=== PATIENT | male | born 1950 | race Caucasian/White ===

== ENCOUNTER 2021-05-31 07:14 | Observation (INO) | payer OTHER ==
[2021-05-29 09:24] LABS: BASOPHILS % (AUTO) 0.9 % (0.0-5.0); EOSINOPHILS % (AUTO) 0.4 % (0.0-8.0); HEMATOCRIT 46.8 % (42-54); LYMPHOCYTES % (AUTO) 20.5 % (21.0-51.0); MEAN CORPUSCULAR HEMOGLOBIN 29.7 pg (27.0-33.0); MEAN CORPUSCULAR HGB CONC 32.7 g/dL (32.0-36.0); MEAN CORPUSCULAR VOLUME 90.7 fL (79-99); MONOCYTES % (AUTO) 8.7 % (3.0-13.0); NEUTROPHILS % (AUTO) 68.7 % (40.0-77.0); PLATELET COUNT (AUTO) 227 K/uL (130-400); RED BLOOD CELL COUNT(AUTO) 5.16 MIL/uL (4.50-6.20); RED CELL DISTRIBUTION WIDTH 13.2 % (11.0-15.5); WHITE BLOOD COUNT (AUTO) 7.9 K/uL (4.8-10.8)
[2021-05-29 09:26] LABS: APPEARANCE,URINE Clear (CLEAR); BILIRUBIN,URINE Negative (NEGATIVE); COLOR,URINE Yellow (YELLOW); GLUCOSE, URINE (UA) Negative (NEGATIVE); KETONES,URINE Negative (NEGATIVE); LEUKOCYTE ESTERASE ,URINE Negative (NEGATIVE); NITRATE,URINE Negative (NEGATIVE); OCCULT BLOOD,URINE Negative (NEGATIVE); PROTEIN,URINE Negative (NEGATIVE)
[2021-05-29 09:36] LABS: CREATININE 1.3 mg/dL (0.5-1.5); POTASSIUM 4.4 mmol/L (3.5-5.1)
[2021-05-29 09:39] LABS: INR 1.16 (0.85-1.15); PROTHROMBIN TIME 12.5 SEC (9.6-11.6)
[2021-05-30 15:21] VITALS: BP 144/76
[~2021-05-31] VITALS: Ht 165.1 cm; Wt 76.1 kg
[2021-05-31] VITALS (16 sets, daily range): BP systolic 85–132; BP diastolic 43–71
[~2021-05-31 07:14] MED LIST: ATOR20TA65 PO; FENO54TA6 PO; IRBE1TAB41 PO; METO50TA18 PO; VIT PO; [UNRECOGNIZED DRUG - OTHER] PO; [UNRECOGNIZED DRUG - OTHER] PO
[2021-05-31] MEDS ORDERED: LACTATED RINGERS 1000ML 1,000 ML IV ONE (08:00)
[2021-05-31] MEDS: CEFAZOLIN SODIUM 1 GM VIAL IVP ONE ×2 (08:21→13:28)
[2021-05-31] MEDS ORDERED: UBID10CA6 PO (08:28)
[2021-05-31] MEDS ORDERED: CEFAZOLIN SODIUM 1 GM VIAL ONE (11:51)
[2021-05-31] MEDS ORDERED: TRANEXAMIC ACID 1000MG/10ML ONE (11:51)
[2021-05-31] MEDS ORDERED: PROPOFOL 10 MG/ML 20ML VIAL IV ONE (12:54)
[2021-05-31] MEDS ORDERED: LIDOCAINE HCL-MPF 1% 5ML AMP IJ ONE (12:54)
[2021-05-31] MEDS ORDERED: ROCURONIUM 10MG/1ML SYR 10 MG/ML ML ONE (12:54)
[2021-05-31] MEDS ORDERED: FENTANYL CITRATE PF 50 MCG/1 ML 2ML VIAL ONE ×2 (12:55→14:06)
[2021-05-31] MEDS ORDERED: ROPIVACAINE 0.5% 5MG/ML 30ML IJ ONE (13:03)
[2021-05-31] MEDS ORDERED: EPHEDRINE SULFATE 50 MG/ML AMPULE ONE ×3 (13:11→17:31)
[2021-05-31] MEDS ORDERED: GLYCOPYRROLATE 1 MG/5 ML SYRINGE ONE ×2 (13:35→16:29)
[2021-05-31] MEDS ORDERED: CEFAZOLIN SODIUM 1 GM VIAL IRRIG ONE (14:20)
[2021-05-31] MEDS ORDERED: NEOSTIGMINE 5MG/5ML SYR IV ONE (16:29)
[2021-05-31 16:30] LABS: ABG BASE EXCESS -5.6 mmol/L (-2.0-3.0); ABG HCO3 18.7 mmol/L (21.0-28.0); ABG OXYGEN SATURATION 99.2 % (95.0-99.0); ABG PCO2 34 mmHg (35-48)
[2021-05-31] MEDS ORDERED: OXYCODONE HCL 5 MG TAB PO PRN (17:00)
[2021-05-31] MEDS ORDERED: KCL 20 MEQ ERTAB PO PRN (17:00)
[2021-05-31] MEDS ORDERED: POTASSIUM CHLORIDE 20MEQ/100ML 100 ML IV PRN (17:00)
[2021-05-31] MEDS ORDERED: LIDOCAINE HCL-MPF 1% 2ML VIAL IV PRN (17:00)
[2021-05-31] MEDS ORDERED: TEMAZEPAM 15 MG CAPSULE PO PRN (17:00)
[2021-05-31] MEDS ORDERED: KETOROLAC 15MG/ML VIAL (15MG/ML) IV PRN (17:00)
[2021-05-31] MEDS ORDERED: TRAMADOL HCL 50 MG TABLET PO PRN (17:00)
[2021-05-31] MEDS ORDERED: POTASSIUM CHLORIDE 10% ELIXIR 20 MEQ/15 ML UDCUP PO PRN (17:00)
[2021-05-31] MEDS ORDERED: DiphenhydrAMINE HCL 50 MG/ML VIAL IVP PRN (17:00)
[2021-05-31] MEDS ORDERED: ONDANSETRON 4MG INJ IVP PRN (17:00)
[2021-05-31] MEDS ORDERED: FE FUMARATE/FA/MV, MIN COMB#15 1 TAB PO PRN (17:00)
[2021-05-31] MEDS: ASPIRIN 81 MG EC TAB PO SCH (20:01)
[2021-05-31] MEDS: CELECOXIB 200 MG CAP PO SCH (20:01)
[2021-05-31] MEDS: PREGABALIN 25 MG CAP PO SCH (20:01)
[2021-05-31] MEDS: ACETAMINOPHEN 500 MG TABLET PO SCH (20:02)
[2021-05-31] MEDS: 0.9%NACL 1000ML 1,000 ML IV SCH (20:05)
[2021-05-31] MEDS: CEFAZOLIN SODIUM 1 GM VIAL IVP SCH (21:28)
[2021-06-01] VITALS: BP 90/53
[2021-06-01] MEDS: 0.9%NACL 1000ML 1,000 ML IV SCH ×2 (02:03→13:00)
[2021-06-01 04:00] VITALS: BP 93/54
[2021-06-01 05:07] LABS: HEMATOCRIT 35.5 % (42-54); MEAN CORPUSCULAR HEMOGLOBIN 30.3 pg (27.0-33.0); MEAN CORPUSCULAR HGB CONC 33.2 g/dL (32.0-36.0); RED BLOOD CELL COUNT(AUTO) 3.9 MIL/uL (4.50-6.20); RED CELL DISTRIBUTION WIDTH 13.5 % (11.0-15.5); WHITE BLOOD COUNT (AUTO) 7.6 K/uL (4.8-10.8)
[2021-06-01] MEDS: CEFAZOLIN SODIUM 1 GM VIAL IVP SCH (05:08)
[2021-06-01 05:24] LABS: CREATININE 1.3 mg/dL (0.5-1.5); POTASSIUM 3.9 mmol/L (3.5-5.1)
[2021-06-01 08:00] VITALS: BP 94/53
[2021-06-01] MEDS: POLYETHYLENE GLYCOL 3350 17 GM POWD.PACK PO SCH (08:02)
[2021-06-01] MEDS: PREGABALIN 25 MG CAP PO SCH ×2 (08:03→19:48)
[2021-06-01] MEDS: CELECOXIB 200 MG CAP PO SCH ×2 (08:03→19:47)
[2021-06-01] MEDS: FAMOTIDINE 20MG TAB PO SCH (08:03)
[2021-06-01] MEDS: TAMSULOSIN HCL 0.4 MG CAP.ER.24H PO SCH (08:03)
[2021-06-01] MEDS: OXYCODONE HCL 5 MG TAB PO PRN ×3 (08:04→16:59)
[2021-06-01] MEDS: **HM** FENOFIBRATE 54MG PO SCH ×2 (09:00→19:49)
[2021-06-01] MEDS: ASPIRIN 81 MG EC TAB PO SCH ×2 (09:49→19:47)
[2021-06-01] MEDS: ACETAMINOPHEN 500 MG TABLET PO SCH ×2 (09:50→16:58)
[2021-06-01 11:47] VITALS: BP 84/48
[2021-06-01] MEDS: CALCIUM CARB 500MG PO PRN ×2 (12:54→19:47)
[2021-06-01 16:00] VITALS: BP 97/57
[2021-06-01 19:35] VITALS: BP 95/47
[2021-06-01] MEDS ORDERED: METOPROLOL TARTRATE 50 MG TAB PO SCH (21:00)
[2021-06-01] MEDS ORDERED: [UNRECOGNIZED DRUG - OTHER] PO SCH (21:00)
[2021-06-01] MEDS ORDERED: CA 600MG+VIT D 400 UNIT TAB 1 TAB TABLET PO SCH (21:00)
[2021-06-01] MEDS ORDERED: CO Q10 PO SCH (21:00)
[2021-06-01] MEDS ORDERED: ATORVASTATIN 20 MG TABLET PO SCH (21:00)
[2021-06-01] MEDS ORDERED: LOSARTAN/HYDROCHLOROTHIAZIDE 50-12.5MG TABLET PO SCH (21:00)
[2021-06-02 00:12] VITALS: BP 107/58
[2021-06-02] MEDS: ACETAMINOPHEN 500 MG TABLET PO SCH (01:07)
[2021-06-02] MEDS: OXYCODONE HCL 5 MG TAB PO PRN ×2 (03:21→08:23)
[2021-06-02 03:33] VITALS: BP 116/61
[2021-06-02 07:43] VITALS: BP 124/66
[2021-06-02] MEDS: PREGABALIN 25 MG CAP PO SCH (08:18)
[2021-06-02] MEDS: FAMOTIDINE 20MG TAB PO SCH (08:18)
[2021-06-02] MEDS: POLYETHYLENE GLYCOL 3350 17 GM POWD.PACK PO SCH (08:18)
[2021-06-02] MEDS: CELECOXIB 200 MG CAP PO SCH (08:18)
[2021-06-02] MEDS: TAMSULOSIN HCL 0.4 MG CAP.ER.24H PO SCH (08:18)
[2021-06-02] MEDS: ASPIRIN 81 MG EC TAB PO SCH (08:18)
[2021-06-02] MEDS: **HM** FENOFIBRATE 54MG PO SCH (08:23)
[2021-06-02 11:14] VITALS: BP 110/57
[2021-06-02] MEDS ORDERED: ACETAMINOPHEN 500 MG TABLET PO SCH (14:00)
[2021-06-02] MEDS ORDERED: HYDR-4060 PO (16:33)
[2021-06-02 16:37] VITALS: BP 96/53
[2021-06-03] MEDS ORDERED: BISACODYL 10 MG SUPP.RECT RC PRN (17:00)
== END 2021-06-02 18:25 | disposition home or self-care (01) ==
LOC: DAH 07:14 → DAHIP 07:15 → 3AH 18:17
PROVIDERS: ADMIT Orthopaedic Surgery; ATTEND Orthopaedic Surgery
DX: M75.102 Unspecified rotator cuff tear or rupture of left shoulder, not specified as traumatic (principal); Z20.822 Contact with and (suspected) exposure to COVID-19; G89.29 Other chronic pain; M25.512 Pain in left shoulder; D64.9 Anemia, unspecified; M19.012 Primary osteoarthritis, left shoulder; I10 Essential (primary) hypertension; E78.00 Pure hypercholesterolemia, unspecified; E78.5 Hyperlipidemia, unspecified; R11.2 Nausea with vomiting, unspecified; Z85.46 Personal history of malignant neoplasm of prostate; Z96.612 Presence of left artificial shoulder joint; Z79.82 Long term (current) use of aspirin; Z87.891 Personal history of nicotine dependence; Z79.899 Other long term (current) drug therapy; Z98.890 Other specified postprocedural states
CPT/HCPCS: 23472; 36415 ×2; 73030; 80048 ×2; 81003; 82435; 82803; 82947; 83605; 84132; 84295; 85018; 85025; 85027; 85610; 87088; 87635; 87641; 88304; 88311; 93005; 96361; 96374; 96376; 97039 ×3; 97116 ×3; 97161; 97530 ×4; A4215; A4221; A4222; A4223; A4565; A4649 ×4; A4663; A4930 ×3; A6206; C1713; C1776; C9803; G0168; G0378 ×47; J0690 ×5; J2704; J2710; J2795; J3010 ×2; J3490 ×7; J7040; J7120 ×2